=== PATIENT | male | born 1955 | race Caucasian/White ===

== ENCOUNTER → 2016-11-09 | Outpatient (CLI) | payer MEDICAID ==
--- NOTE | 2016-11-09 17:40 | DX ---
PA and lateral chest History: Persistent cough for one month. Comparison: AP and lateral chest April 14, 2015. Findings: There is mild peribronchial thickening without focal consolidation. There is no pneumothora x or pleural effusion. Heart size is upper normal. Mild degenerative change is present in the spine. Right shoulder arthroplasty is noted Impression: Mild peribronchial thickening suggesting airways disease/bronchitis.
== END ==
LOC: FIMAGING 16:39
DX: R05 Cough (principal)

== ENCOUNTER → 2017-02-11 | Outpatient (CLI) | payer MEDICAID | LOC: FIMAGING 11:05 | DX: M19.012 Primary osteoarthritis, left shoulder (principal) ==

== ENCOUNTER → 2017-02-22 | Outpatient (CLI) | payer MEDICAID | LOC: FIMAGING 09:31 | DX: M25.812 Other specified joint disorders, left shoulder (principal) ==